=== PATIENT | female | born 1975 | race Caucasian/White ===

== ENCOUNTER 2024-02-24 15:19 | Emergency (ER) | payer OTHER, SELFPAY ==
[2024-02-24 15:21] VITALS: BP 152/108
[2024-02-24 17:16] VITALS: BMI 38.9
[2024-02-24 17:18] VITALS: BP 131/80
[2024-02-24] MEDS: FLEET PHOSPHATE ENEMA-ADULT 135 ML RECTAL (17:26)
--- NOTE | 2024-02-24 18:05 | ED.GENMED ---
History of Present Illness
General
Chief Complaint: Abdominal Pain
Source: patient
Exam Limitations: none
Time Seen by Provider: 02/24/24 16:34
Nursing documentation reviewed up to this point in time: agreed with
History of Present Illness
History of Present Illness:
Patient presents to ED secondary to difficulty with bowel movement despite having urgent rectal pressure over the past 3 days. Patient has administered enema at home without relief in symptoms. Patient was evaluated at urgent care center earlier
this afternoon where she received x-ray as well as blood work, with diagnosis of constipation. Denies fever or chills. Denies nausea or vomiting. Denies recent change in medications or diet. States that she is under extreme stress this week and
has been in prolonged sitting position while at work along with irregular diet.
Past History
Past History
ED Past Medical History: Hypercholesterolemia
ED Past Surgical History: Gynecological
Social History
Tobacco: Non-smoker
Alcohol: Occasional
Drug: None
Personal:
Living: with family
Review of Systems
Review of Systems
Allergies reviewed?: Yes
All Other Systems: ROS reviewed and negative except as documented in HPI and ROS
Constitutional: Reports no symptoms
ABD/GI: Reports constipated; Denies vomiting or diarrhea
Musculoskeletal: Reports no symptoms
Skin: Reports no symptoms
Neurological: Reports no symptoms
Phy Exam
Physical Exam
Physical Exam:
Physical Exam
General: no apparent distress, not acutely ill. afebrile
Head: nc/at. eomi
Neck: supple. no meningeal signs.
Abdomen: normal bowel sounds. not tender.
Neuro: alert and oriented. no focal neurological deficits
Skin: no rash
Psychiatric: well kept. interactive and cooperative
Extremities: no edema. no calf tenderness.
Course
Orders/Labs/Results
Orders:
Orders
02/24/24 17:23
Phosphate Enema [Fleet Phosphate Enema-Adult] 135 ml .ROUTE .STK-MED ONE
02/24/24 17:24
Phosphate Enema [Fleet Phosphate Enema-Adult] 135 ml RECTAL NOW STA
02/24/24 18:05
Magnesium Citrate [Citroma] 300 ml PO ONCE ONE
Vital Signs
Initial and Last Documented VS:
Initial Vital Signs
Temp Pulse Resp BP Pulse Ox
98.7 F 100 16 152/108 98
02/24/24 15:21 02/24/24 15:21 02/24/24 15:21 02/24/24 15:21 02/24/24 15:21
Last Documented Vital Signs
Temp Pulse Resp BP Pulse Ox
98.7 F 97 18 131/80 97
02/24/24 15:21 02/24/24 17:17 02/24/24 17:17 02/24/24 17:18 02/24/24 17:17
MDM/Problems Addressed
MDM/Problems Addressed:
Rectal exam performed at bedside, with MUNA Malcolm, at bedside. Copious amount of soft stool removed manually. Subsequently, patient was given Fleet enema with large bowel movement. Patient reports improvement symptoms after treatment. Patient
will be discharged home in stable condition, to the care of her mother, with recommendation to continue bowel regimen at home, i.e. stool softener/laxatives. Advised to follow-up with PCP for reevaluation, or return to ED with worsening symptoms.
*Critical Care Note
Total Time (30-74mins, 75-104mins- exclusive of procedures): Not Applicable
ED Attending Note
-
Portions of this chart may have been created with voice recognition software.� Occasional wrong word or��sound alike� substitutions may have occurred due to the inherent limitations of voice recognition software.
Discharge Plan
Departure
Patient Disposition: Home (Routine Discharge)
Date of Disposition: 02/24/24
Time of Disposition: 18:05
Patient with high blood pressure during this ER visit?: Yes
Condition: Good
Discharge Problem:
Constipation
Instructions: Constipation, Adult (DC)
Prescriptions:
No Action
multivitamin 1 EACH tablet
1 ea PO DAILY
famotidine [Acid Controller] 20 MG tablet
20 mg PO BID
diazepam [Valium] 5 MG tablet
5 mg PO TID PRN (Reason: spasm) Qty: 17 0RF
tramadol 50 MG tablet
100 mg PO Q6HPRN PRN (Reason: pain) Qty: 17 0RF
Referrals:
Dianna Prieto DO [Family Provider] -
Activity Restrictions/Additional Instructions:
As discussed, please follow-up with your primary care physician with any further concerns. Until then, recommend increasing fluid intake along with use of [id number] stool softener as well as laxatives, until your bowel movements are
regulated.
Interventions
Interventions:
*Risk Screen - Suicide Last Done: 02/24/24 15:21
*General Assessment Last Done: 02/24/24 17:17
*Neglect/Abuse Screening Last Done: 02/24/24 15:21
*ED COVID-19 Vaccine History Last Done: 02/24/24 17:17
*Nursing Disposition Last Done: 02/24/24 18:14
XK-Rwfiuq-Pnwlfjmdbm Assessment Last Done: 02/24/24 17:19
Discharge Date and Time
Discharge Date/Time: 02/24/24 18:15
Print Language: LITHUANIAN
[2024-02-24] MEDS: CITROMA 300 ML PO (18:11)
== END 2024-02-24 18:15 | disposition home or self-care (01) ==
LOC: EMR 15:19
PROVIDERS: EMERGENCY PHYSICIAN Emergency Medicine; FAMILY PHYSICIAN Family Medicine
DX: K59.00 Constipation, unspecified (principal)
CPT/HCPCS: 99283